=== PATIENT | male | born 1950 | race Caucasian/White ===

== ENCOUNTER 2017-04-26 12:35 | Emergency (ER) | payer BC, MEDICARE, OTHER ==
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
--- NOTE | 2017-04-26 13:11 | CT ---
EXAMINATION: CT cervical spine HISTORY: Pain COMPARISON: None TECHNIQUE: Axial CT images obtained through the cervical spine without contrast. Coronal and sagittal reconstructions obtained. FINDINGS: There is straightening of the normal cervical lordosis, likely positional. Vertebral body h eights appear grossly maintained. No fracture or acute osseous abnormality demonstrated. There is fus ion of the C2 and C3 vertebral bodies and facets. Mild marginal osteophytes are noted. The prevertebr al soft tissues are within normal limits. The lung are clear. IMPRESSION: Mild to moderate degenerative changes without acute findings.
[2017-04-26 14:05] VITALS: BP 137/78
== END 2017-04-26 14:30 | disposition home or self-care (01) ==
LOC: MW.ED 12:35
DX: S16.1XXA Strain of muscle, fascia and tendon at neck level, initial encounter (principal); Z79.82 Long term (current) use of aspirin; Z79.899 Other long term (current) drug therapy; F17.210 Nicotine dependence, cigarettes, uncomplicated; V83.5XXA Driver of special industrial vehicle injured in nontraffic accident, initial encounter
CPT/HCPCS: 72125; 72125-26; 99283; 99283-25